=== PATIENT | male | born 1985 | race Caucasian/White ===

== ENCOUNTER 2017-01-17 17:55 | Emergency (ER) | payer SELFPAY ==
[2017-01-17] MEDS ORDERED: Silver Sulfadiazine 1% Crm 50 GM Tube TOP ONE (18:24)
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
[2017-01-17 20:05] VITALS: BP 140/94
== END 2017-01-17 19:15 | disposition home or self-care (01) ==
LOC: MW.ED 17:55
DX: T65.891A Toxic effect of other specified substances, accidental (unintentional), initial encounter (principal); T20.66XA Corrosion of second degree of forehead and cheek, initial encounter; T20.57XA Corrosion of first degree of neck, initial encounter; F17.210 Nicotine dependence, cigarettes, uncomplicated
CPT/HCPCS: 16020; 99283; A9270